=== PATIENT | male | born 1965 | race African-American/Black ===

== ENCOUNTER → 2017-02-15 15:47 | Outpatient (CLI) | payer OTHER ==
[2016-08-24 06:15] VITALS: BMI 30.5
[~2017-02-15 15:47] MED LIST: AMOXICILLIN875 MG PO; HYDROCODONE-APA1 TAB PO
[2017-02-15 16:35] LABS: BASOPHILS 0.5 % (0-2); EOSINOPHILS 1.4 % (0-7); HEMATOCRIT 41.5 % (42.0-54.0); HEMOGLOBIN 13.9 g/dL (13.5-17.5); IMMATURE GRANULOCYTES 0.2 % (0-5); LYMPHOCYTES 31.4 % (15-50); MCH 32.9 pg (26.0-34.0); MCHC 33.5 g/dL (31.0-37.0); MCV 98.1 fL (80.0-100.0); MONOCYTES 11.4 % (2-11); NEUTROPHILS 55.1 % (40-80); PLATELET COUNT 318 10x3/uL (130-400); RBC 4.23 10x6/uL (4.20-6.10); RDW 13.4 % (11.5-14.5); WBC 6.4 10x3/uL (4.8-10.8)
[2017-02-15 17:02] LABS: CALC OSMOLALITY 280 mosm/kg (275-300); CALCIUM 8.7 mg/dL (8.5-10.1); CARBON DIOXIDE 25.4 mmol/L (21.0-32.0); CHLORIDE - SERUM 106 mmol/L (98-107); CREATININE - SERUM 0.9 mg/dL (0.6-1.3); GLUCOSE 65 mg/dL (74-106); MAGNESIUM - SERUM 1.9 mg/dL (1.8-2.4); PHOSPHOROUS 2.9 mg/dL (2.5-4.9); POTASSIUM - SERUM 3.5 mmol/L (3.5-5.1); SODIUM 143 mmol/L (136-145); UREA NITROGEN 8 mg/dL (7-18); eGFR NON AFRICAN AMERICAN > 90 mL/min (90-120)
== END | disposition home or self-care (01) ==
LOC: D.LABREF 15:47
PROVIDERS: Student in an Organized Health Care Education/Training Program
DX: M86.662 Other chronic osteomyelitis, left tibia and fibula (principal); R25.2 Cramp and spasm; Z79.2 Long term (current) use of antibiotics

== ENCOUNTER → 2017-07-16 11:00 | Outpatient (CLI) | payer OTHER ==
[2016-08-24 06:15] VITALS: BMI 30.5
[2017-07-16 14:03] LABS: BASOPHILS 0.3 % (0-2); EOSINOPHILS 2.7 % (0-7); HEMATOCRIT 41.5 % (42.0-54.0); HEMOGLOBIN 13.9 g/dL (13.5-17.5); IMMATURE GRANULOCYTES 0.2 % (0-5); MCH 32.9 pg (26.0-34.0); MCHC 33.5 g/dL (31.0-37.0); MCV 98.1 fL (80.0-100.0); MONOCYTES 14.1 % (2-11); NEUTROPHILS 53.7 % (40-80); PLATELET COUNT 331 10x3/uL (130-400); RBC 4.23 10x6/uL (4.20-6.10); RDW 13.3 % (11.5-14.5); WBC 6.4 10x3/uL (4.8-10.8)
[2017-07-16 14:21] LABS: CREATININE - SERUM 0.8 mg/dL (0.6-1.3)
== END | disposition home or self-care (01) ==
LOC: D.LABREF 11:00
PROVIDERS: Student in an Organized Health Care Education/Training Program
DX: T84.7XXD Infection and inflammatory reaction due to other internal orthopedic prosthetic devices, implants and grafts, subsequent encounter (principal); Z51.81 Encounter for therapeutic drug level monitoring; Z79.2 Long term (current) use of antibiotics